=== PATIENT | male | born 1995 | race Caucasian/White ===

== ENCOUNTER 2019-08-12 03:08 | Emergency (ER) | payer BC, OTHER ==
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
--- NOTE | 2019-08-12 04:04 | CRLCR ---
INDICATION: Trauma, ankle pain TECHNIQUE: Ankle radiograph 3 views left COMPARISON: None FINDINGS: Bone: There is a mildly displaced oblique fracture of the lateral malleolus present. Joint: The ankle mortise joint and the visualized hindfoot joints are unremarkable in appearance. No significant ankle effusion is seen. Soft tissue: Moderate lateral soft tissue swelling is seen. No radiopaque foreign bodies are seen. IMPRESSION: 1. There is a mildly displaced oblique fracture of the lateral malleolus present. Dictated by Reji Earl MD @ 08/12/2019 4:03:41 AM Dictated by: Reji Earl MD @ 08/12/2019 04:03:45 (Electronically Signed)
== END 2019-08-12 04:53 | disposition home or self-care (01) ==
LOC: JP.ED 03:08
DX: S82.62XA Displaced fracture of lateral malleolus of left fibula, initial encounter for closed fracture (principal); W55.29XA Other contact with cow, initial encounter; Y93.89 Activity, other specified
CPT/HCPCS: 29515; 73610-LT; 99283; 99283-25

== ENCOUNTER 2020-03-10 06:42 | Day surgery (SDC) | payer BC ==
[2020-03-10] MEDS ORDERED: Bupivacaine 0.5% 30 ML SDV ONE (06:48)
[2020-03-10] MEDS ORDERED: Lactated Ringers 1,000 ML IV SCH (07:00)
[2020-03-10] MEDS ORDERED: Nozin Nasal Sanitizer NASBOTH ONE (07:00)
[2020-03-10] MEDS ORDERED: ceFAZolin 2 GM in Premix Bag 1 BAG IV ONE (07:30)
[2020-03-10] MEDS ORDERED: fentaNYL 250 MCG/5 ML SDV ONE (07:41)
[2020-03-10] MEDS ORDERED: Neostigmine Methylsulfate 1 MG/ML 5 ML Syringe ONE (07:42)
[2020-03-10] MEDS ORDERED: Rocuronium 50 MG/5 ML Vial ONE (07:42)
[2020-03-10] MEDS ORDERED: Ondansetron 4 MG/2 ML SDV ONE (07:42)
[2020-03-10] MEDS ORDERED: Dexamethasone 4 MG/ML SDV ONE (07:42)
[2020-03-10] MEDS ORDERED: Propofol 200 MG/20 ML SDV ONE (07:42)
[2020-03-10] MEDS ORDERED: Glycopyrrolate 0.2 MG/ML 5 ML MDV ONE (07:42)
[2020-03-10] MEDS ORDERED: Clindamycin Phosphate 900 MG in Sodium Chloride 0.9% 100 ML IV ONE (08:00)
[2020-03-10] MEDS ORDERED: fentaNYL 100 MCG/2 ML SDV ONE (09:00)
[2020-03-10] MEDS ORDERED: Morphine 2 MG/ML Syringe IVPUSH ONE (10:20)
[2020-03-10] MEDS ORDERED: Acetaminophen/HYDROcodone 325-5 MG Tab PO PRN (11:12)
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
== END 2020-03-10 12:30 | disposition home or self-care (01) ==
LOC: JP.SDS 06:42
PROVIDERS: ATTEND Specialist
DX: S62.323A Displaced fracture of shaft of third metacarpal bone, left hand, initial encounter for closed fracture (principal); S62.325A Displaced fracture of shaft of fourth metacarpal bone, left hand, initial encounter for closed fracture; S62.327A Displaced fracture of shaft of fifth metacarpal bone, left hand, initial encounter for closed fracture; V89.2XXA Person injured in unspecified motor-vehicle accident, traffic, initial encounter; Y93.9 Activity, unspecified; Y92.9 Unspecified place or not applicable; Y99.0 Civilian activity done for income or pay
CPT/HCPCS: 26615; 36415; 76000; 80048; 85027; A9270; C1713; C1776; J1100; J2270; J2405; J2704; J2710; J3010; J3490; J7050; J7120